=== PATIENT | male | born 1965 | race Caucasian/White ===

== ENCOUNTER 2017-10-12 07:12 | Day surgery (SDC) | payer BC ==
[~2017-10-12] VITALS: Ht 193 cm; Wt 131.2 kg
[~2017-10-12 07:12] MED LIST: AMLO5TAB4 PO; CHOL5000 PO; CLON1PAT7 TD; HYDR-3307 PO; LISI-170 PO
[2017-10-12 08:09] VITALS: BP 150/94
[2017-10-12] MEDS ORDERED: FENTANYL PF 250 MCG/5ML ONE ×2 (08:09→08:10)
[2017-10-12] MEDS ORDERED: MIDAZOLAM 1 MG/ML, 2ML ONE ×2 (08:10)
[2017-10-12] MEDS ORDERED: METOCLOPRAMIDE 5 MG/ML, 2ML ONE (08:17)
[2017-10-12] MEDS ORDERED: DEXAMETHASONE 4 MG/ML, 1ML ONE (08:17)
[2017-10-12] MEDS ORDERED: PROPOFOL 10 MG/ML, 20ML ONE ×2 (08:17)
[2017-10-12] MEDS ORDERED: CEFAZOLIN 1,000 MG ONE ×3 (08:17)
[2017-10-12] MEDS ORDERED: ONDANSETRON 2MG/ML, 2ML ONE (08:18)
[2017-10-12] MEDS ORDERED: ASPI-682 PO (08:23)
[2017-10-12] MEDS ORDERED: LACTATED RINGERS 1,000 ML IV SCH (08:27)
[2017-10-12] MEDS ORDERED: KETOROLAC 30 MG/1 ML ONE (08:46)
[2017-10-12] MEDS ORDERED: LIDOCAINE 1%, 50ML ONE (08:47)
[2017-10-12] MEDS ORDERED: ROPIvacaine/PF 0.5%, 30 ML ONE (08:47)
[2017-10-12] MEDS ORDERED: EPINEPHRINE 1 MG/ML, 1ML ONE (08:47)
[2017-10-12] MEDS ORDERED: MEPERIDINE/PF 25MG/0.5ML IVPush PRN (09:00)
[2017-10-12] MEDS ORDERED: ALBUTEROL SULFATE 2.5 MG/3 ML NPPB PRN (09:00)
[2017-10-12] MEDS ORDERED: METOPROLOL 1 MG/ML, 5ML IV PRN (09:00)
[2017-10-12] MEDS ORDERED: ONDANSETRON 2MG/ML, 2ML IVPush PRN (09:00)
[2017-10-12] MEDS ORDERED: HYDROmorphone 1 MG/ML, 1ML IV PRN (09:00)
[2017-10-12] MEDS ORDERED: EPHEDRINE 50 MG/ML, 1ML IVPush PRN (09:00)
[2017-10-12] MEDS ORDERED: PROMETHAZINE 25 MG/ML, 1ML IV PRN (09:00)
[2017-10-12] MEDS ORDERED: OXYcodone 5 MG/5 ML ORAL.SOL UDC PO PRN (09:00)
[2017-10-12] MEDS ORDERED: LABETALOL 5MG/ML, 20ML IV PRN (09:00)
[2017-10-12] MEDS ORDERED: hydrALAzine 20 MG/ML, 1ML IV PRN (09:00)
[2017-10-12] MEDS ORDERED: FENTANYL PF 100 MCG/2ML ONE (09:26)
[2017-10-12] MEDS ORDERED: ACETAMINOPHEN 650 MG/20.3 ML UDC ONE (09:26)
[2017-10-12] MEDS ORDERED: OXYcodone 5 MG/5 ML ORAL.SOL UDC ONE ×2 (09:26→09:29)
[2017-10-12] MEDS: FENTANYL PF 100 MCG/2ML IV PRN ×2 (09:29→09:36)
[2017-10-12] MEDS: ACETAMINOPHEN 325 MG TABLET PO PRN ×2 (09:30→09:31)
== END 2017-10-12 11:00 ==
LOC: OUT 07:12
PROVIDERS: ATTEND Orthopaedic Surgery
DX: S83.242A Other tear of medial meniscus, current injury, left knee, initial encounter (principal); S83.282A Other tear of lateral meniscus, current injury, left knee, initial encounter; M94.262 Chondromalacia, left knee; M65.862 Other synovitis and tenosynovitis, left lower leg; K31.9 Disease of stomach and duodenum, unspecified; I10 Essential (primary) hypertension; X58.XXXA Exposure to other specified factors, initial encounter; Y93.89 Activity, other specified; Y92.89 Other specified places as the place of occurrence of the external cause; Y99.8 Other external cause status; Z79.82 Long term (current) use of aspirin; Z87.39 Personal history of other diseases of the musculoskeletal system and connective tissue
CPT/HCPCS: 29880; J0171; J0690; J1100; J1885; J2405; J2704; J2765; J2795; J3010; J3490; J7120; J2250